=== PATIENT | male | born 1990 | race Caucasian/White ===

== ENCOUNTER 2023-03-18 10:00 | Outpatient (CLI) | payer OTHER, SELFPAY ==
[2023-03-18 10:12] LABS: Basophils Absolute Auto 0.08 K/mm3 (0.00-0.10); Basophils Percent Auto 0.9 % (0.0-1.0); Eosinophils Absolute Auto 0.23 K/mm3 (0.02-0.50); Eosinophils Percent Auto 2.7 % (1.0-6.0); Hematocrit 46.1 % (40.0-54.0); Hemoglobin 15.6 g/dL (14.0-18.0); Immature Granulocyte Absolute 0.03 K/mm3 (0.00-0.00); Immature Granulocyte Percent A 0.3 % (0.0-0.0); Lymphocytes Absolute Auto 2.31 K/mm3 (1.10-4.50); Lymphocytes Percent Auto 26.7 % (18.0-42.0); Mean Corpuscular HGB Conc 33.8 g/dL (32.0-36.0); Mean Corpuscular Hemoglobin 31.4 pg (27.0-31.0); Mean Corpuscular Volume 92.8 fL (78.0-102.0); Mean Platelet Volume 9.2 fl (8.7-11.0); Monocytes Absolute Auto 0.62 K/mm3 (0.10-0.90); Monocytes Percent Auto 7.2 % (2.0-11.0); Neutrophils Absolute Auto 5.4 K/mm3 (1.7-7.2); Neutrophils Percent Auto 62.2 % (50.0-70.0); Platelet Count Result 288 K/mm3 (150-420); Red Blood Count 4.97 M/mm3 (4.70-6.10); Red Cell Distribution Width 13.2 % (11.6-14.4); White Blood Count 8.7 K/mm3 (4.8-10.8)
[2023-03-18 11:11] LABS: Alanine Aminotransferase 25 U/L (16-63); Albumin Level 3.9 g/dL (3.4-5.0); Alkaline Phosphatase 89 U/L (46-116); Anion Gap 3 mmol/L (8-16); Aspartate Amino Transferase 12 U/L (15-37); Bilirubin,Total 0.5 mg/dL (0.00-1.00); Blood Urea Nitrogen 11 mg/dL (7-18); Calcium 9.3 mg/dL (8.5-10.1); Carbon Dioxide 35 mmol/L (21-32); Chloride 105 mmol/L (98-108); Estimated Glomerular Filt Rate > 60; Folic Acid 8.6 ng/mL (8.6->20); Glucose 88 mg/dL (70-99); Osmolality Calculated 294 mOsm/kg (285-295); Sodium 143 mmol/L (136-145); Total Protein 7.3 g/dL (6.4-8.2); Vitamin B12 788 pg/mL (193-986)
[2023-03-18 11:12] LABS: Thyroid Stimulating Hormone Reflex 0.93 u/IU/mL (0.36-3.74)
== END 2023-03-18 10:01 | disposition home or self-care (01) ==
PROVIDERS: PCP Family Medicine; Visit Provider Family Medicine
DX: E53.8 Deficiency of other specified B group vitamins (principal); E11.9 Type 2 diabetes mellitus without complications; F41.1 Generalized anxiety disorder
CPT/HCPCS: 36415; 80053; 82607; 82746; 84443; 85025

== ENCOUNTER 2023-03-19 09:11 | Outpatient (CLI) | payer OTHER, SELFPAY ==
--- NOTE | 2023-04-10 13:37 | WPDPFTINT ---
PFT Procedure Performed PFT Procedure Performed Plethysmography (Lung Vol) Diffusing Cap (DLCO) Flow Vol Loop Spirometry w/o Bronchodil PFT Interpretation DOS: 03/19/2023 REQUESTING: Dr. Emmanuel Lam REASON FOR TESTING: dyspnea PULMONARY FUNCTION TESTS Results are reliable and reproducible. Spirometry: FEV1 is 4.75 L, 111%, normal. FVC is 6.19 new L, 117% predicted, normal. FEV1/FVC is 77%, normal. No bronchodilator is administered. Lung volumes: Total lung capacity is 7.79 L, 107% predicted, normal. Residual volume is 1.60 L, 81%, normal. RV / TLC is 21%, not increased. Airway resistance 170% predicted. Diffusion: DLCO is 35, 128% predicted, normal. RV/TLC is 4.16, 93%, normal. Flow volume loop: Unremarkable. IMPRESSION: This study shows normal spirometry without administration of bronchodilator, normal lung volumes and normal diffusion. No prior studies for comparison. Audrey Greer MD
== END 2023-03-19 09:12 | disposition home or self-care (01) ==
PROVIDERS: PCP Family Medicine; Visit Provider Family Medicine
DX: R06.00 Dyspnea, unspecified (principal)
CPT/HCPCS: 94010; 94726; 94729